=== PATIENT | male | born 1990 | race Caucasian/White ===

== ENCOUNTER 2018-04-06 14:51 | Emergency (ER) | payer SELFPAY ==
[2018-04-06 14:52] VITALS: BP 140/83; PULSE 94; RESP 16; TEMP 36.8; O2SAT 98; BMI 21.9
--- NOTE | 2018-04-06 15:09 | ED.VISSUMM ---
- ER Visit Summary Date of Service: 04/06/18 Chief Complaint: Finger injury History of Present Illness: The patient is a 28 M who was cleaning out his car after work when his left index and middle fingers got shot in the car door. He is right-hand dominant. Tetanus is up-to-date. Physical Examination: Vital signs unremarkable. Heart is regular rate and rhythm. Left upper extremity examination reveals edema to the distal phalanx of the left middle and index fingers. He does appear to have a small subungual hematoma on the third finger. Dried blood is noted along the lateral border of the nails on both the index and middle finger. He has an ecchymotic blister to the pad of the fourth finger. He has normal cap refill. He does have good range of motion but does have increased pain with movement. Test Results: Left hand x-rays reveal no fracture. Emergency Department Course and Treatment: Patient is given Naprosyn. A digital block was then performed of the left second and third fingers. Wounds are cleansed. The subungual hematoma present under the index finger self drained while he was soaking his hand. The nail on the third finger is split and Dermabond is placed over this. There is no obvious evidence of laceration to the nailbed itself. Wounds are cleansed and dressed. Treatment Plan: [] Disposition: Discharge Impression: Crush injury left hand This note was generated with [employer] dictation software. It may contain incorrect words, spelling, and punctuation that were not noted in review of the chart prior to signing ED Disposition - Plan for ED Patient: Chief Complaint: Wound Referrals: Estuardo Diaz MD [Primary Care Provider] -
--- NOTE | 2018-04-06 15:10 | RAD_ITS ---
STUDY: X-RAY - LEFT HAND REASON FOR EXAM: Male, 28 years old. Pain after trauma TECHNIQUE: 3 view(s) of the hand. COMPARISON: None. FINDINGS: Normal radiocarpal articulation. Normal distal radioulnar joint. Normal visualized carpal bones. Normal carpal articulations Normal carpometacarpal articulation of the thumb. Normal second through fifth carpometacarpal joints. Normal metacarpi. Normal metacarpophalangeal joint of the thumb. Normal interphalangeal joint of the thumb. Normal proximal and distal phalanges of the thumb. Normal metacarpophalangeal joints of the second through fifth fingers. Normal proximal and distal interphalangeal joints of the second through fifth fingers. Normal phalanges of the second through fifth fingers. The soft tissue structures are unremarkable. RAD/Hand Min 3 Views IMPRESSION: Normal x-ray examination of the hand. Electronically Signed: Justus Larios MD at 15:22 EDT , Service support ,
[2018-04-06] MEDS: Naproxen 500 MG Tablet PO (15:23)
--- NOTE | 2018-04-06 16:19 | ED.DEP ---
ED Disposition - Plan for ED Patient: Disposition: Home or Assisted Living Chief Complaint: Wound Instructions: ED Crush Injury Finger No Fx Prescriptions: Naproxen [Naprosyn] 500 mg PO BID PRN PRN #20 tablet PRN Reason: Pain Referrals: Estuardo Diaz MD [Primary Care Provider] - 1-2 Weeks
== END 2018-04-06 16:37 | disposition home or self-care (01) ==
PROVIDERS: Emergency Provider Emergency Medicine; Family Provider Family Medicine; PCP Family Medicine
DX: S67.191A Crushing injury of left index finger, initial encounter (principal); S67.193A Crushing injury of left middle finger, initial encounter; S60.122A Contusion of left index finger with damage to nail, initial encounter; X58.XXXA Exposure to other specified factors, initial encounter; Y93.89 Activity, other specified; Y92.9 Unspecified place or not applicable; Y99.8 Other external cause status; Z72.0 Tobacco use
CPT/HCPCS: 73130; 99283

== ENCOUNTER → 2020-07-29 | Outpatient (CLI) | payer SELFPAY | END | disposition home or self-care (01) | PROVIDERS: PCP Family Medicine; Visit Provider Nurse Practitioner Adult Health | DX: J06.9 Acute upper respiratory infection, unspecified (principal); Z20.828 Contact with and (suspected) exposure to other viral communicable diseases | CPT/HCPCS: 87633; 87635; U0003 ==

== ENCOUNTER 2022-10-17 18:49 | Emergency (ER) | payer SELFPAY ==
[2022-10-17 18:50] VITALS: BP 131/85; PULSE 83; RESP 14; TEMP 36.1; O2SAT 100; BMI 21.2
[2022-10-17 20:27] LABS: Absolute Lymphocyte Count 3.85 X10^3/uL (0.83-4.51); Basophil# 0.07 X10^3/uL; Basophil% 0.7 % (0-1); Eosinophil# 0.21 X10^3/uL; Eosinophils% 2.2 % (0-5); Hematocrit 49.2 % (40-54); Hemoglobin 16.3 g/dL (13.0-16.5); Lymphocyte # 3.85 X10^3/ul (0.83-4.51); Lymphocyte % 39.9 % (19-41); Mean Corp Hgb Conc 33.1 g/dL (32-36); Mean Corpuscular Volume 93.5 fL (80-94); Mean Platelet Vol. 9.2 fl (6.2-12.0); Monocyte# 0.51 X10^3/uL; Monocyte% 5.3 % (0-10); NRBC Flagged by Analyzer 0 % (0-5); Neutrophil # 4.96 X10^3/uL (2.7-7.7); Neutrophil % 51.5 % (47-70); Platelet Count 321 K/mm3 (150-450); RBC Distribution Width CV 13.9 % (11.6-14.6); Red Blood Count 5.26 M/mm3 (4.6-6.2); White Blood Count 9.6 K/mm3 (4.4-11.0)
[2022-10-17 20:28] LABS: Anion Gap 4 (5-15); BUN 14 mg/dL (7-18); BUN/Creat Ratio 13.1 RATIO (10-20); Calcium,Total 8.8 mg/dL (8.5-10.1); Chloride 111 mmol/L (98-107); Creatinine, Serum 1.07 mg/dL (0.70-1.30); EST Glomerular Filtration Rate 85 mL/min (>60); Est Glom Filt Rate - Afr Amer 103 mL/min (>60); Estimated Creatinine Clearance 86.07 ml/min; Glucose 103 mg/dL (74-106); Potassium 4.1 mmol/L (3.5-5.1); Sodium Level 142 mmol/L (136-145)
[2022-10-17 20:36] LABS: Alcohol, Blood (Medical)-Serum < 3.0 mg/dL
[2022-10-17 20:47] VITALS: RESP 75; TEMP 36.4; O2SAT 99
--- NOTE | 2022-10-17 21:00 | EDS_ITS ---
HPI HPI - Psych History of Present Illness Chief Complaint: Suicidal Narrative Narrative: 32-year-old male presenting with suicidal ideations. He has a plan. He states that he currently feels that he might try to kill himself by opening a propane can and is running track in the garage. Patient has tried this before as well as sleeping pills to try to kill himself but he states I always wake up. He also states that he has guns at home and he could easily blow his brains out. Psychiatric disease formally. But he said he has been suicidal since he was a teenager. Patient has no homicidal ideation. Patient does state that he has addiction to crack cocaine and regular cocaine and believes that when the drugs run out this makes his suicidal ideation worse. He also admits to some problems with his girlfriend and work is very stressful. PFSH PFSH Home Medications naproxen 500 mg tablet 500 mg PO BID PRN PRN Pain ##20 04/06/18 [Rx Last Taken Unknown] Allergy/AdvReac Type Severity Reaction Status Date / Time No Known Allergies Allergy Verified 10/17/22 18:50 Social History Smoking Status: Current every day smoker tobacco type: cigarettes ROS ROS ED Constitutional Constitutional ED: Denies chills, fever(s) or sweats Eyes Eyes: Denies blurry vision or change in vision ENT ENT ED: Denies ear pain or sore throat Cardiovascular Cardiovascular: Denies chest pain, palpitations or racing heartbeat Respiratory/Chest Respiratory/Chest: Denies cough, dyspnea or sputum Gastrointestinal Gastrointestinal: Denies abdominal pain, constipation, diarrhea, nausea or vomiting Genitourinary Genitourinary ED: Denies dysuria, hematuria or urinary frequency Musculoskeletal Musculoskeletal: Denies arthralgias, myalgias or neck pain Integumentary Denies abscess, Abrasions or rash Neurologic Neurologic: Denies headache(s), paresthesias or weakness Psychiatric Psychiatric: Reports depression, suicidal ideation and suicidal thoughts; Denies anxiety Endocrine Endocrinology: Denies polydipsia or polyuria EXAM Physical Exam Const Vital Signs: 10/17/22 18:50 10/17/22 20:47 10/17/22 21:06 Temperature 97 F L 97.5 F L Temperature Source Temporal Oral Pulse Rate 83 Respiratory Rate 14 75 H Blood Pressure 131/85 H Blood Pressure Mean 100 Pulse Ox 100 99 99 Oxygen Delivery Method Room Air Room Air Room Air 10/17/22 23:00 Temperature Temperature Source Pulse Rate Respiratory Rate Blood Pressure Blood Pressure Mean Pulse Ox 97 Oxygen Delivery Method Room Air Positive unkempt General Appearance ED: unkempt; Negative for pallor HEENT Reports normocephalic, head/scalp atraumatic and moist mucous membranes Eyes PERRL and EOMs intact bilaterally Neck no lymphadenopathy and supple Chest Wall inspection of chest normal and palpation of chest normal Resp normal respiratory effort and clear to auscultation bilaterally Auscultation: Negative for rales, rhonchi or wheezes Cardio regular rate and regular rhythm GI normal to inspection, nondistended, normoactive bowel sounds and non-distended Auscultation: normoactive bowel sounds Palpation: soft Narrative: Deferred Back/Spine Cervical Spine: cervical spine tenderness Extremity normal to inspection General Extremety ED: Yes edema and tenderness General Extremity: edema Neuro oriented x3 and CN's II-XII intact bilaterally Sensorium / Orientation: alert Motor Exam: strength 5/5 throughout Psych mental status grossly normal Appearance: unkempt and bizarre Attitude: bizarre and No agitated Activity / Motor Behavior: fidgetting and avoids eye contact Speech: rapid Mood & Affect: sad Thought Process: racing thoughts Thought Content: No hallucination(s) and compulsion(s) Attention / Concentration: concentration grossly intact and attention grossly impaired Memory / Cognition: memory grossly intact Insight: poor Judgement: poor Skin no rashes or lesions noted and no wounds General Skin Exam: Negative for jaundice or pallor MDM MDM MDM Narrative Medical decision making narrative: Patient presenting with suicidal and she is in a plan to kill himself. He has guns at home and admits he could kill himself with these. He also admits to wanting to inhale propane in his garage with his running truck and suffocate himself with a monoxide. Patient admits to 2 previous attempts. He states the police came to his last attempt in the garage and he was able to talk them out of taking him to the hospital. Patient also admits to drug addiction and states that when he is out of drugs it makes it worse. I do believe he would benefit from inpatient care given his previous attempts and currently stating that he could kill himself with a gun and he has guns at home. Patient has no specific psychiatric history. Patient will need to be medically cleared. CBC to assess white blood cell count, hemoglobin, platelets, differential. This is all normal. BMP to assess renal function, electrolytes, glucose, anion gap. This is all unremarkable as well. EtOH to assess alcohol level. This is within normal limits. Urine drug screen to assess for drugs of abuse. Rapid COVID obtained as requested by psychiatry. this is negative. Blood work is within normal limits. Patient is medically cleared. COVID is negative. Drug screen positive for cocaine. EtOH normal. Social work did come to see the patient. 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 The patient requests a different social insurance specialist. Patient will be seen by crisis. He is currently medically cleared. Impression: 1. Suicidal ideation 2. Recent suicide attempt 3. Depression Lab Data Attestation: I reviewed the patient's lab results. Labs: Laboratory Results - last 24 hr 10/17/22 10/17/22 10/17/22 20:00 20:00 20:00 WBC Cancelled Corrected WBC Cancelled RBC Cancelled Hgb Cancelled Hct Cancelled MCV Cancelled MCH Cancelled MCHC Cancelled RDW Std Deviation Cancelled RDW Coeff of Supa Cancelled Plt Count Cancelled MPV Cancelled Immature Gran % (Auto) Cancelled Neut % (Auto) Cancelled Lymph % (Auto) Cancelled [place] % (Auto) Cancelled Eos % (Auto) Cancelled Baso % (Auto) Cancelled Absolute Neuts (auto) Cancelled Absolute Lymphs (auto) Cancelled Total Counted Cancelled Neutrophils % (Manual) Cancelled Band Neutrophils % Cancelled Lymphocytes % (Manual) Cancelled Monocytes % (Manual) Cancelled Eosinophils % (Manual) Cancelled Basophils % (Manual) Cancelled Metamyelocytes % Cancelled Myelocytes % Cancelled Promyelocytes % Cancelled Blast Cells % Cancelled Plasma Cell % (Manual) Cancelled Other Cells % Cancelled Nucleated RBC % Cancelled Nucleated RBCs/100 WBC Cancelled Differential Comment Cancelled Diff Path Review Cancelled Hypersegmented Neuts Cancelled Atypical Lymphocytes Cancelled Reactive Lymphocytes Cancelled Smudge Cells Cancelled Toxic Granulation Cancelled Toxic Vacuolation Cancelled Dohle Bodies Cancelled Cam Rods Cancelled Platelet Estimate Cancelled Plt Morphology Comment Cancelled RBC Morphology Cancelled Polychromasia Cancelled Hypochromasia Cancelled Poikilocytosis Cancelled Basophilic Stippling Cancelled Anisocytosis Cancelled Microcytosis Cancelled Macrocytosis Cancelled Spherocytes Cancelled Sickle Cells Cancelled Target Cells Cancelled Tear Drop Cells Cancelled Ovalocytes Cancelled Stomatocytes Cancelled [place] Bodies Cancelled Nhung Cells Cancelled Bite Cells Cancelled Crenated Cell Cancelled Acanthocytes (Spur) Cancelled Rouleaux Cancelled Schistocytes Cancelled Sodium 142 Potassium 4.1 Chloride 111 H Carbon Dioxide 27.0 Anion Gap 4 L BUN 14 Creatinine 1.07 Estim Creat Clear Calc 86.07 Est GFR (MDRD) Af Amer 103 Est GFR (MDRD) Non-Af 85 BUN/Creatinine Ratio 13.1 Glucose 103 Calcium 8.8 Urine Opiates Screen Urine Methadone Screen Ur Barbiturates Screen Ur Phencyclidine Scrn Ur Amphetamines Screen MDMA (Ecstasy) Screen U Benzodiazepines Scrn Urine Cocaine Screen U Cannabinoids Screen Ur Drug Screen Comment Ethyl Alcohol < 3.0 10/17/22 10/17/22 20:05 20:15 WBC 9.6 Corrected WBC RBC 5.26 Hgb 16.3 Hct 49.2 MCV 93.5 MCH 31.0 MCHC 33.1 RDW Std Deviation 48.0 H RDW Coeff of Supa 13.9 Plt Count 321 MPV 9.2 Immature Gran % (Auto) 0.400 Neut % (Auto) 51.5 Lymph % (Auto) 39.9 [place] % (Auto) 5.3 Eos % (Auto) 2.2 Baso % (Auto) 0.7 Absolute Neuts (auto) 5.0 Absolute Lymphs (auto) 3.85 Total Counted Neutrophils % (Manual) Band Neutrophils % Lymphocytes % (Manual) Monocytes % (Manual) Eosinophils % (Manual) Basophils % (Manual) Metamyelocytes % Myelocytes % Promyelocytes % Blast Cells % Plasma Cell % (Manual) Other Cells % Nucleated RBC % 0 Nucleated RBCs/100 WBC Differential Comment Diff Path Review Hypersegmented Neuts Atypical Lymphocytes Reactive Lymphocytes Smudge Cells Toxic Granulation Toxic Vacuolation Dohle Bodies Cam Rods Platelet Estimate Plt Morphology Comment RBC Morphology Polychromasia Hypochromasia Poikilocytosis Basophilic Stippling Anisocytosis Microcytosis Macrocytosis Spherocytes Sickle Cells Target Cells Tear Drop Cells Ovalocytes Stomatocytes [place] Bodies Nhung Cells Bite Cells Crenated Cell Acanthocytes (Spur) Rouleaux Schistocytes Sodium Potassium Chloride Carbon Dioxide Anion Gap BUN Creatinine Estim Creat Clear Calc Est GFR (MDRD) Af Amer Est GFR (MDRD) Non-Af BUN/Creatinine Ratio Glucose Calcium Urine Opiates Screen NEGATIVE Urine Methadone Screen NEGATIVE Ur Barbiturates Screen NEGATIVE Ur Phencyclidine Scrn NEGATIVE Ur Amphetamines Screen NEGATIVE MDMA (Ecstasy) Screen NEGATIVE U Benzodiazepines Scrn NEGATIVE Urine Cocaine Screen POSITIVE H U Cannabinoids Screen NEGATIVE Ur Drug Screen Comment Ethyl Alcohol Discharge Plan Triage Chief Complaint: Suicidal ED Provider: Aurelio Stevens Dx/Rx/DC Orders Prescriptions: No Action naproxen 500 MG tablet 500 mg PO BID PRN PRN (Reason: Pain) Qty: 20 0RF Primary Care Provider: Estuardo Diaz Referrals: Estuardo Diaz MD [Primary Care Provider] -
--- NOTE | 2022-10-17 21:02 | CM.ED ---
Social Work Note Referral Source: MD Stevens Referral Reason: SI MD Stevens met with SW and reviewed patient's symptoms and MH hx, explaining patient reports several previous attempts as well as a current plan and struggles with substance use. SW to follow up. SW met with patient and introduced herself and role as [facility] Hospice Manager. Patient and SW are familiar with each other and agree it would not be appropriate for SW to assess patient. SW informed patient of the assessment process including being medically cleared, then evaluated by [facility] Crisis team and then needing to find a psychiatric hospital with available beds that can accept patient if that is what Crisis and MD recommend. SW explained this process can take days to complete. Patient voiced understanding and inquired about his mother's ability to bring food into the hospital. SW explained the only restriction is it needs to be finger food, patient voiced understanding and no other concerns or needs at this time. SW informed MD Stevens and odd ticket clerk patient will need to be evaluated by [facility] Crisis when medically cleared Plan: patient should be evaluated by Crisis when medically cleared Sylvia LOW, PANCHITO
[2022-10-17 21:06] VITALS: O2SAT 99
[2022-10-17 21:35] LABS: Amphetamine Urine VISTA NEGATIVE (<1000 ng/mL); Barbiturate Urine VISTA NEGATIVE (< 200 ng/mL); Benzodiazepine Urine VISTA NEGATIVE (< 200 ng/mL); Cocaine Urine VISTA POSITIVE (< 300 ng/mL); Ecstacy Urine VISTA NEGATIVE (< 500 ng/mL); Methadone Urine VISTA NEGATIVE (< 300 ng/mL); PCP Urine VISTA NEGATIVE (< 25 ng/mL); THC Urine VISTA NEGATIVE (< 50 ng/mL); Vista UDS pH Range 5
[2022-10-17 23:00] VITALS: O2SAT 97
[2022-10-18] VITALS (7 sets, daily range): BP systolic 119–124; BP diastolic 66–79; PULSE 55–73; RESP 14–16; TEMP 36.4; O2SAT 96–97
--- NOTE | 2022-10-18 00:22 | NURSING ---
CALLED CRISIS AT 0022
--- NOTE | 2022-10-18 09:43 | CM.ED ---
Addendum entered by Sylvia De La Torre 10/18/22 14:47: attendance secretary informed SW patient was declined from [facility] due to their facility stating patient needs a dual diagnosis facility and being unable to provide that level of care. [facility] contacted ED inquiring about EKG as the copy they received is too dark. SW to follow up. EKG refaxed to [facility]. PANCHITO Murguia Addendum entered by Sylvia De La Torre 10/18/22 14:03: Elizabeth with [facility] contacted SW to request EKG for patient as [facility] is requesting it for patient's referral. SW informed RN Anais patient needs EKG for placement. FRANK Manzo to review with MD and order. attendance secretary to fax to [facility] once obtained. fax [phone] PANCHITO Murguia Addendum entered by Sylvia De La Torre 10/18/22 10:24: SW contacted by Elizabeth with [facility] to report referrals were sent to [facility] as well as [facility] for review. PANCHITO Murguia Original Note: ELENA Note SW contacted [facility] Crisis to inquire about progress towards placement for patient. Elizbaeth with Crisis explained due to patient's insurance his options are limited. ELENA inquired if any of the possible placements were for dual diagnosis are MD reported patient struggles with drug use that negatively impacts suicidal thoughts. Elizabeth reports she will continue to look into placements but so far there are no beds available at the facilities that accept his insurance. Plan: Inpatient psych pending facility with bed availability PANCHITO Murguia
--- NOTE | 2022-10-18 13:44 | EKG12_ITS ---
Test Reason : [facility] Blood Pressure : / mmHG Vent. Rate : 075 BPM Atrial Rate : 075 BPM P-R Int : 112 ms QRS Dur : 092 ms QT Int : 358 ms P-R-T Axes : 062 081 076 degrees QTc Int : 399 ms Normal sinus rhythm Normal ECG Confirmed by LEIA WELCH MD ([id number]), online content editor BIBI GUTIERREZ ([id number]) on 10/20/2022 11:34:51 AM Referred By: CORBY Confirmed By:LEIA WELCH MD
--- NOTE | 2022-10-18 16:43 | ED.RN ---
PT ACCEPTED AT [facility] BUT NO ROOM TONIGHT, CAN ARRIVE TOMORROW AT 8AM
[2022-10-19] VITALS: BP 115/64; PULSE 72; RESP 16; O2SAT 97
[2022-10-19 01:00] VITALS: RESP 16
[2022-10-19 06:03] VITALS: TEMP 36.6
--- NOTE | 2022-10-19 06:44 | NURSING ---
update on squad, they will be after 8, probably 830
[2022-10-19 07:00] VITALS: RESP 16
== END 2022-10-19 08:40 ==
PROVIDERS: Emergency Provider Student in an Organized Health Care Education/Training Program; PCP Family Medicine; Visit Provider Student in an Organized Health Care Education/Training Program
DX: R45.851 Suicidal ideations (principal); F32.A Depression, unspecified; F17.210 Nicotine dependence, cigarettes, uncomplicated
CPT/HCPCS: 36415; 80048; 80307; 82077; 85025; 87811; 93005; 99285

== ENCOUNTER 2024-02-13 17:12 | Emergency (ER) | payer MEDICAID, SELFPAY ==
[2024-02-13 17:12] VITALS: BP 140/96; PULSE 116; RESP 20; TEMP 36.6; O2SAT 100; BMI 20.8
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
== END 2024-02-13 19:49 | disposition home or self-care (01) ==
PROVIDERS: Emergency Provider Student in an Organized Health Care Education/Training Program; PCP Family Medicine; Visit Provider Student in an Organized Health Care Education/Training Program
DX: S16.1XXA Strain of muscle, fascia and tendon at neck level, initial encounter (principal); F17.210 Nicotine dependence, cigarettes, uncomplicated; Y04.8XXA Assault by other bodily force, initial encounter
CPT/HCPCS: 99282

== ENCOUNTER 2024-05-12 13:14 | Emergency (ER) | payer MEDICAID, SELFPAY ==
[2024-05-12 13:14] VITALS: BP 135/90; PULSE 95; RESP 16; TEMP 36.8; O2SAT 99; BMI 21.1
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
== END 2024-05-12 14:17 | disposition home or self-care (01) ==
PROVIDERS: Emergency Provider Emergency Medicine; PCP Family Medicine; Visit Provider Emergency Medicine
DX: L23.7 Allergic contact dermatitis due to plants, except food (principal); F17.210 Nicotine dependence, cigarettes, uncomplicated
CPT/HCPCS: 99282